=== PATIENT | female | born 1935 | race Caucasian/White ===

== ENCOUNTER 2017-09-29 05:38 | Inpatient (IN) | payer MEDICARE, BC ==
[2017-09-29] MEDS ORDERED: Sodium Chloride 0.9% 10 ML Syringe FLUSH PRN (06:10)
[2017-09-29] MEDS ORDERED: Sodium Chloride 0.9% 500 ML IV ONE (06:12)
[2017-09-29] MEDS ORDERED: Sodium Chloride 0.9% 1,000 ML IV SCH (07:15)
[2017-09-29] MEDS ORDERED: Labetalol 20 MG/4 ML Syringe IVPUSH STA (07:30)
[2017-09-29] MEDS ORDERED: Levofloxacin/Dextrose 5%-Water 750 MG in Premix Bag 1 BAG IV ONE (07:30)
[2017-09-29] MEDS ORDERED: Levofloxacin/Dextrose 5%-Water 150 ML IV ONE (07:36)
[2017-09-29] MEDS ORDERED: Docusate Sodium 100 MG Cap PO PRN (09:50)
[2017-09-29] MEDS ORDERED: Ondansetron 4 MG/2 ML SDV IV PRN (09:50)
[2017-09-29] MEDS ORDERED: oxyCODONE 5 MG Tab PO PRN (09:50)
--- NOTE | 2017-09-29 10:02 | EDM.PDOC ---
ED HPI GENERAL MEDICAL PROBLEM - General Chief Complaint: General Stated Complaint: FELL RT HIP PAIN Time Seen by Provider: 09/29/17 05:40 Source of Information: Reports: Patient, EMS History Limitations: Reports: Altered Mental Status, Physical Impairment - History of Present Illness INITIAL COMMENTS - FREE TEXT/NARRATIVE: 82 y.o.w.f with a dementia came by ems to the ed after she was found on the floor next to her bed. As per nurse, the pt is trying to get up without help in the past. Pt is not able to give a HPT due to her underlying medical issues. BP 190/125 pulse 84 temp 36.6 Onset: Today Onset Date: 09/29/17 Onset Time: 04:00 Duration: Hour(s):, Constant Location: Reports: Generalized Quality: Reports: Other (was found next to her bed) Severity: Moderate Improves with: Reports: Rest Worsens with: Reports: Movement - Related Data Allergies Allergy/AdvReac Type Severity Reaction Status Date / Time No Known Allergies Allergy Verified 09/29/17 06:40 Home Meds: Home Meds Acetaminophen [Tylenol] 650 mg PO BID@,16 09/29/17 [History] Amoxicillin 2,000 mg PO ONETIME PRN 09/29/17 [History] Bisacodyl 10 mg RECTAL DAILY PRN 09/29/17 [History] Carboxymethylcellulose Sodium [Refresh Tears 0.5% Ophth Soln] 1 drop EYEBOTH BID 09/29/17 [History] Donepezil HCl 5 mg PO BEDTIME 09/29/17 [History] Escitalopram Oxalate 20 mg PO DAILY 09/29/17 [History] Furosemide [Lasix] 20 mg PO SUTUTHSA 09/29/17 [History] Furosemide [Lasix] 40 mg PO MOWEFR 09/29/17 [History] Gabapentin [Neurontin] 100 mg PO BID@08,12 09/29/17 [History] Gabapentin [Neurontin] 300 mg PO BEDTIME 09/29/17 [History] Insulin Detemir [Levemir] 4 unit SUBCUT BEDTIME 09/29/17 [History] LORazepam [Ativan] 0.5 mg PO TID PRN 09/29/17 [History] Mirtazapine 45 mg PO BEDTIME 09/29/17 [History] Nitroglycerin 0.4 mg SL ASDIRECTED PRN 09/29/17 [History] Triamcinolone Acetonide [Triamcinolone Acetonide 0.1% Crm] 1 applic TOP BID [History] amLODIPine [Norvasc] 5 mg PO DAILY 09/29/17 [History] busPIRone [Buspar] 5 mg PO BID 09/29/17 [History] Past Medical History - Past Health History Medical/Surgical History: Denies Medical/Surgical History HEENT History: Reports: Other (See Below) Other HEENT History: Retinopathy. Dry eye syndrome. Cardiovascular History: Reports: CAD, Hypertension Genitourinary History: Reports: UTI, Recurrent, Other (See Below) Other Genitourinary History: Chronic Kidney Disease, Stage 3. Neurological History: Reports: Alzheimers Disease, Other (See Below) Other Neuro History: Disorientation. Mild cognitive impairment. Psychiatric History: Reports: Anxiety Endocrine/Metabolic History: Reports: Diabetes, Type II Social & Family History - Tobacco Use Smoking Status *Q: Unknown Ever Smoked - Caffeine Use Caffeine Use: Reports: None ED ROS GENERAL - Review of Systems Review Of Systems: Unable To Obtain ED EXAM, GENERAL - Physical Exam Exam: See Below Exam Limited By: Altered Mental Status General Appearance: Alert, Mild Distress, Obese Eye Exam: Bilateral Eye: Normal Inspection Ears: Normal External Exam Ear Exam: Bilateral Ear: Auricle Normal Nose: Normal Inspection Throat/Mouth: No Airway Compromise, Other (dry mucosal membrane, poor dentition) Head: Atraumatic, Normocephalic Neck: Normal Inspection Respiratory/Chest: No Respiratory Distress, Other (poor insp effort) Cardiovascular: Normal Peripheral Pulses, Regular Rate, Rhythm Peripheral Pulses: 1+: Radial (L), Radial (R) GI/Abdominal: Normal Bowel Sounds, Distended (no new as per NH and daughter) (Female) Exam: Deferred Rectal (Female) Exam: Deferred Back Exam: Other (decubiti ulcers) Extremities: Normal Inspection, Leg Pain (left leg pain), Redness (tinea inguinalis bilat.) Neurological: Alert Psychiatric: Depressed Mood, Other (dementia) Skin Exam: Warm, Dry, Rash (decubiti ulcers, tinea inguinalis) Lymphatic: No Adenopathy EKG INTERPRETATION EKG Date: 09/29/17 Time: 10:50 Rhythm: NSR Rate (Beats/Min): 47 [place]: Normal P-Wave: Present QRS: Normal ST-T: Normal QT: Prolonged Comparison: NA - No Prior EKG Course - Vital Signs Text/Narrative:: 82 y.o.w.f with a dementia came by ems to the ed after she was found on the floor next to her bed. As per nurse, the pt is trying to get up without help in the past. Pt is not able to give a HPT due to her underlying medical issues. BP 190/125 pulse 84 temp 36.6 PE: Obese w f, with dementia, unable to give a HPI, no family is present. Tenderness left upper leg, abd. pelvic neck and head Imaging: CT head, neck, chest abd and pelice NAD Left femur neg for Fx Labs: WBC 6.7 HGB 10.5 HCT 31.4 Na 134 K 3.8 Cr 2.8 BUN 51 BNP 6595 CK is pending GFR 16 Impression: Fall, dehydration, lung infiltratem UTI, Dementia, Tinea inguinalis , decubiti ulcer, HTN Tx: NS, Lotrimin cream. .[address] Joe, Hospitalist: accepted admission Reexam: Improved, Daughter arrived Plan: Admid to M/S Last Recorded V/S: Last Vital Signs Temp 36.4 C 09/30/17 07:50 Pulse 61 09/30/17 07:50 Resp 18 09/30/17 07:50 BP 193/68 H 09/30/17 07:50 Pulse Ox 90 L 09/30/17 07:50 - Orders/Labs/Meds Orders: Active Orders 24 hr Category Date Time Status Accu Check [Blood Glucose Check, Bedside] [] , Care 09/29/17 14:59 Active 1730 Blood Glucose Check, Bedside [RC] ,0,1730 Care 09/29/17 17:30 Inactive Oxygen Therapy [RC] PRN Care 09/29/17 09:50 Active Up With Assistance [RC] ASDIRECTED Care 09/29/17 09:50 Active Vital Signs [RC] QSHIFT Care 09/29/17 09:50 Active Consistent Carbohydrate Diet [DIET] Diet 09/29/17 Dinner Active CULTURE BLOOD [BC] Urgent Lab 09/29/17 09:00 Results CULTURE BLOOD [BC] Urgent Lab 09/29/17 09:05 Results Acetaminophen [Tylenol] Med 09/29/17 14:00 Active 650 mg PO BID@1200,1600 Bisacodyl [Dulcolax] Med 09/29/17 16:06 Active 10 mg RECTAL DAILY PRN Carboxymethylcellulose Sodium [Refresh Tears 0.5%] Med 09/29/17 21:00 Active 0 ml EYEBOTH BID Clotrimazole [Lotrimin AF 1% Crm] Med 09/29/17 21:00 Active 0 gm TOP BID Docusate Sodium [Colace] Med 09/29/17 09:50 Active 100 mg PO BID PRN Donepezil [Aricept] Med 09/29/17 21:00 Hold 5 mg PO BEDTIME Escitalopram [Lexapro] Med 09/30/17 09:00 Active 20 mg PO DAILY Gabapentin [Neurontin] Med 09/29/17 14:00 Active 100 mg PO BID@0800,1200 Gabapentin [Neurontin] Med 09/29/17 21:00 Active 300 mg PO BEDTIME Insulin Detemir [Levemir] Med 09/29/17 21:00 Active 4 unit SUBCUT BEDTIME LORazepam [Ativan] Med 09/29/17 16:06 Active 0.5 mg PO TID PRN Levofloxacin/Dextrose 5%-Water [Levaquin in D5W 500 MG/ Med 10/01/17 10:00 Active 100 ML] 500 mg Premix Bag 1 bag IV Q48H Nitroglycerin [Nitrostat] Med 09/29/17 16:06 Active 0.4 mg SL ASDIRECTED PRN Triamcinolone Acetonide [Triamcinolone Acetonide 0.1% Med 09/29/17 21:00 Active Crm] 0 gm TOP BID amLODIPine [Norvasc] Med 09/30/17 09:00 Active 5 mg PO DAILY oxyCODONE Med 09/29/17 09:50 Active 5 mg PO Q4H PRN Blood Culture x2 Reflex Set [OM.PC] Urgent Oth 09/29/17 08:48 Ordered Resuscitation Status Routine Resus Stat 09/29/17 09:50 Ordered EKG 12 Lead [EK] Routine Ther 09/29/17 10:22 Ordered Medication Orders Acetaminophen (Tylenol) 650 mg PO BID@1200,1600 [facility] Last Admin: 09/29/17 17:43 Dose: 650 mg Admin: 09/29/17 14:21 Dose: 650 mg Amlodipine Besylate (Norvasc) 5 mg PO DAILY [facility] Artificial Tears (Refresh Tears 0.5%) 0 ml EYEBOTH BID [facility] Last Admin: 09/29/17 20:21 Dose: 1 drop Bisacodyl (Dulcolax) 10 mg RECTAL DAILY PRN PRN Reason: Constipation Buspirone HCl (Buspar) 5 mg PO BID [facility] Clotrimazole (Lotrimin Af 1% Crm) 0 gm TOP BID [facility] Last Admin: 09/29/17 20:08 Dose: 1 applic Docusate Sodium (Colace) 100 mg PO BID PRN PRN Reason: Constipation Donepezil HCl (Aricept) 5 mg PO BEDTIME [facility] Enoxaparin Sodium (Lovenox) 30 mg SUBCUT Q24H [facility] Last Admin: 09/29/17 18:44 Dose: 30 mg Escitalopram Oxalate (Lexapro) 20 mg PO DAILY [facility] Gabapentin (Neurontin) 100 mg PO BID@0800,1200 [facility] Last Admin: 09/30/17 08:07 Dose: 100 mg Admin: 09/29/17 14:28 Dose: 100 mg Gabapentin (Neurontin) 300 mg PO BEDTIME [facility] Last Admin: 09/29/17 20:07 Dose: 300 mg Levofloxacin/Dextrose 500 mg/ (Premix) 100 mls @ 100 mls/hr IV Q48H [facility] Insulin Detemir (Levemir) 4 unit SUBCUT BEDTIME [facility] Last Admin: 09/29/17 20:28 Dose: 4 units Lorazepam (Ativan) 0.5 mg PO TID PRN PRN Reason: Anxiety Mirtazapine (Remeron) 45 mg PO BEDTIME [facility] Nitroglycerin (Nitrostat) 0.4 mg SL ASDIRECTED PRN PRN Reason: Chest Pain Oxycodone HCl (Oxycodone) 5 mg PO Q4H PRN PRN Reason: Pain (moderate 4-6) Last Admin: 09/29/17 11:47 Dose: 5 mg Sodium Chloride (Saline Flush) 10 ml FLUSH ASDIRECTED PRN PRN Reason: Keep Vein Open Triamcinolone Acetonide (Triamcinolone Acetonide 0.1% Crm) 0 gm TOP BID [facility] Last Admin: 09/29/17 20:24 Dose: 1 applic Labs: Laboratory Tests 09/29/17 09/29/17 09/29/17 Range/Units 06:25 06:25 06:25 WBC 6.7 (4.5-12.0) X10-3/uL RBC 3.46 (3.23-5.20) x10(6)uL Hgb 10.5 L (11.5-15.5) g/dL Hct 31.6 (30.0-51.3) % MCV 91.4 (80-96) fL MCH 30.3 (27.7-33.6) pg MCHC 33.2 (32.2-35.4) g/dL RDW 14.2 (11.5-15.5) % Plt Count 209 (125-369) X10(3)uL MPV 7.2 L (7.4-10.4) fL Neut % (Auto) 78.8 (46-82) % Lymph % (Auto) 13.8 (13-37) % [place] % (Auto) 3.9 L (4-12) % Eos % (Auto) 1 (1.0-5.0) % Baso % (Auto) 2 (0-2) % Neut # (Auto) 5.2 (1.6-8.3) # Lymph # (Auto) 0.9 (0.6-5.0) # [place] # (Auto) 0.3 (0.0-1.3) # Eos # (Auto) 0.1 (0.0-0.8) # Baso # (Auto) 0.2 (0.0-0.2) # PT 9.8 (8.7-11.1) INR 0.97 (0.89-1.13) Sodium 143 (135-145) mmol/L Potassium 4.4 (3.5-5.3) mmol/L Chloride 114 H D (100-110) mmol/L Carbon Dioxide 22 L (23-29) mmol/L BUN 51 H (8-23) mg/dL Creatinine 2.8 H* (0.6-1.3) mg/dL Est Cr Clr Drug Dosing TNP Estimated GFR (MDRD) 16 L (>60) BUN/Creatinine Ratio 18.2 (9-20) Glucose 171 H (80-116) mg/dL Calcium 8.4 L (8.6-10.2) mg/dL Total Bilirubin (0.1-1.3) mg/dL Direct Bilirubin (0.10-0.20) mg/dL AST (5-25) IU/L ALT (12-36) U/L Alkaline Phosphatase (56-112) IU/L Creatine Kinase (60-160) IU/L NT-Pro-B Natriuret Pep 6595 H (5-450) pg/mL Total Protein (6.0-8.0) g/dL Albumin (3.2-4.6) g/dL Urine Color (YELLOW) Urine Appearance (CLEAR) Urine pH (5.0-6.5) Ur Specific [place] (1.010-1.025) Urine Protein (NEGATIVE) mg/dL Urine Glucose (UA) (NEGATIVE) mg/dL Urine Ketones (NEGATIVE) mg/dL Urine Occult Blood (NEGATIVE) Urine Nitrite (NEGATIVE) Urine Bilirubin (NEGATIVE) Urine Urobilinogen (NEGATIVE) mg/dL Ur Leukocyte Esterase (NEGATIVE) Urine RBC (0) Urine WBC (0) Ur Squamous Epith Cells (NS,R,O) Urine Bacteria (NS) Urine Yeast (NS) 09/29/17 09/29/17 09/29/17 Range/Units 06:28 07:00 07:15 WBC (4.5-12.0) X10-3/uL RBC (3.23-5.20) x10(6)uL Hgb (11.5-15.5) g/dL Hct (30.0-51.3) % MCV (80-96) fL MCH (27.7-33.6) pg MCHC (32.2-35.4) g/dL RDW (11.5-15.5) % Plt Count (125-369) X10(3)uL MPV (7.4-10.4) fL Neut % (Auto) (46-82) % Lymph % (Auto) (13-37) % [place] % (Auto) (4-12) % Eos % (Auto) (1.0-5.0) % Baso % (Auto) (0-2) % Neut # (Auto) (1.6-8.3) # Lymph # (Auto) (0.6-5.0) # [place] # (Auto) (0.0-1.3) # Eos # (Auto) (0.0-0.8) # Baso # (Auto) (0.0-0.2) # PT (8.7-11.1) INR (0.89-1.13) Sodium (135-145) mmol/L Potassium (3.5-5.3) mmol/L Chloride (100-110) mmol/L Carbon Dioxide (23-29) mmol/L BUN (8-23) mg/dL Creatinine (0.6-1.3) mg/dL Est Cr Clr Drug Dosing Estimated GFR (MDRD) (>60) BUN/Creatinine Ratio (9-20) Glucose (80-116) mg/dL Calcium (8.6-10.2) mg/dL Total Bilirubin 0.3 (0.1-1.3) mg/dL Direct Bilirubin 0.05 L (0.10-0.20) mg/dL AST 35 H (5-25) IU/L ALT 28 (12-36) U/L Alkaline Phosphatase 156 H (56-112) IU/L Creatine Kinase 276 H* (60-160) IU/L NT-Pro-B Natriuret Pep (5-450) pg/mL Total Protein 6.3 (6.0-8.0) g/dL Albumin 2.6 L (3.2-4.6) g/dL Urine Color Yellow (YELLOW) Urine Appearance Cloudy (CLEAR) Urine pH 6.0 (5.0-6.5) Ur Specific [place] 1.015 (1.010-1.025) Urine Protein 500 H (NEGATIVE) mg/dL Urine Glucose (UA) 250 H (NEGATIVE) mg/dL Urine Ketones Negative (NEGATIVE) mg/dL Urine Occult Blood Moderate H (NEGATIVE) Urine Nitrite Positive H (NEGATIVE) Urine Bilirubin Negative (NEGATIVE) Urine Urobilinogen Normal (NEGATIVE) mg/dL Ur Leukocyte Esterase Moderate H (NEGATIVE) Urine RBC 5-10 (0) Urine WBC 20-30 H (0) Ur Squamous Epith Cells Few H (NS,R,O) Urine Bacteria Many H (NS) Urine Yeast Few H (NS) Meds: Medications Generic Name Dose Route Start Last Admin Trade Name Freq PRN Reason Stop Dose Admin Acetaminophen 650 mg 09/29/17 14:00 09/29/17 17:43 Tylenol PO 650 mg BID@1200,1600 [facility] Administration Amlodipine Besylate 5 mg 09/30/17 09:00 Norvasc PO DAILY [facility] Artificial Tears 0 ml 09/29/17 21:00 09/29/17 20:21 Refresh Tears 0.5% EYEBOTH 1 drop BID [facility] Administration Bisacodyl 10 mg 09/29/17 16:06 Dulcolax RECTAL DAILY PRN Constipation Buspirone HCl 5 mg 09/30/17 09:00 Buspar PO BID [facility] Clotrimazole 0 gm 09/29/17 21:00 09/29/17 20:08 Lotrimin Af 1% Crm TOP 1 applic BID [facility] Administration Docusate Sodium 100 mg 09/29/17 09:50 Colace PO BID PRN Constipation Donepezil HCl 5 mg 09/29/17 21:00 Aricept PO BEDTIME [facility] Enoxaparin Sodium 30 mg 09/29/17 17:45 09/29/17 18:44 Lovenox SUBCUT 30 mg Q24H [facility] Administration Escitalopram Oxalate 20 mg 09/30/17 09:00 Lexapro PO DAILY [facility] Gabapentin 100 mg 09/29/17 14:00 09/30/17 08:07 Neurontin PO 100 mg BID@0800,1200 [facility] Administration Gabapentin 300 mg 09/29/17 21:00 09/29/17 20:07 Neurontin PO 300 mg BEDTIME [facility] Administration Levofloxacin/Dextrose 500 mg/ 100 mls @ 100 mls/hr 10/01/17 10:00 Premix IV Q48H [facility] Insulin Detemir 4 unit 09/29/17 21:00 09/29/17 20:28 Levemir SUBCUT 4 units BEDTIME [facility] Administration Lorazepam 0.5 mg 09/29/17 16:06 Ativan PO TID PRN Anxiety Mirtazapine 45 mg 09/30/17 21:00 Remeron PO BEDTIME [facility] Nitroglycerin 0.4 mg 09/29/17 16:06 Nitrostat SL ASDIRECTED PRN Chest Pain Oxycodone HCl 5 mg 09/29/17 09:50 09/29/17 11:47 Oxycodone PO 5 mg Q4H PRN Administration Pain (moderate 4-6) Sodium Chloride 10 ml 09/29/17 06:10 Saline Flush FLUSH ASDIRECTED PRN Keep Vein Open Triamcinolone Acetonide 0 gm 09/29/17 21:00 09/29/17 20:24 Triamcinolone Acetonide 0.1% Crm TOP 1 applic BID [facility] Administration Discontinued Medications Generic Name Dose Route Start Last Admin Trade Name Cinthya PRN Reason Stop Dose Admin Buspirone HCl 5 mg 09/29/17 21:00 09/29/17 20:21 Buspar PO 5 mg BID [facility] Administration Sodium Chloride 500 mls @ 999 mls/hr 09/29/17 06:12 Normal Saline IV 09/29/17 06:42 .BOLUS ONE Sodium Chloride 1,000 mls @ 500 mls/hr 09/29/17 07:15 09/29/17 07:15 Normal Saline IV 500 mls/hr ASDIRECTED [facility] Administration Levofloxacin/Dextrose 750 mg/ 150 mls @ 100 mls/hr 09/29/17 07:30 09/29/17 07 :43 Premix IV 09/29/17 08:59 100 mls/hr ONETIME ONE Administration Levofloxacin/Dextrose Confirm 09/29/17 07:36 09/29/17 07:43 Levaquin In D5w 750 Mg/150 Ml Administered 09/29/17 07:37 Not Given Dose 150 mls @ as directed IV .STK-MED ONE Lactated Ringer's 1,000 mls @ 125 mls/hr 09/29/17 10:00 09/30/17 05:41 Ringers, Lactated IV 125 mls/hr ASDIRECTED [facility] Administration Labetalol HCl 10 mg 09/29/17 07:30 09/29/17 07:44 Normodyne IVPUSH 09/29/17 07:31 10 mg ONETIME STA Administration Protocol Mirtazapine 45 mg 09/29/17 21:00 09/29/17 20:23 Remeron PO 45 mg BEDTIME [facility] Administration Ondansetron HCl 4 mg 09/29/17 09:50 Zofran IV Q4H PRN Nausea/Vomiting Departure - Departure Time of Disposition: 10:00 Disposition: Refer to Observation Condition: Fair Clinical Impression: Fall (on)(from) incline, initial encounter - Discharge Information - My Orders Last 24 Hours: My Active Orders 09/29/17 08:48 Blood Culture x2 Reflex Set [OM.PC] Urgent 09/29/17 09:00 CULTURE BLOOD [BC] Urgent 09/29/17 09:05 CULTURE BLOOD [BC] Urgent 09/29/17 09:50 Oxygen Therapy [RC] PRN Up With Assistance [RC] ASDIRECTED Vital Signs [RC] QSHIFT Docusate Sodium [Colace] 100 mg PO BID PRN oxyCODONE 5 mg PO Q4H PRN Resuscitation Status Routine 09/29/17 10:22 EKG 12 Lead [EK] Routine 09/29/17 21:00 Clotrimazole [Lotrimin AF 1% Crm] 0 gm TOP BID 10/01/17 10:00 Levofloxacin/Dextrose 5%-Water [Levaquin in D5W 500 MG/100 ML] 500 mg Premix Bag 1 bag IV Q48H - Assessment/Plan Last 24 Hours: My Active Orders 09/29/17 08:48 Blood Culture x2 Reflex Set [OM.PC] Urgent 09/29/17 09:00 CULTURE BLOOD [BC] Urgent 09/29/17 09:05 CULTURE BLOOD [BC] Urgent 09/29/17 09:50 Oxygen Therapy [RC] PRN Up With Assistance [RC] ASDIRECTED Vital Signs [RC] QSHIFT Docusate Sodium [Colace] 100 mg PO BID PRN oxyCODONE 5 mg PO Q4H PRN Resuscitation Status Routine 09/29/17 10:22 EKG 12 Lead [EK] Routine 09/29/17 21:00 Clotrimazole [Lotrimin AF 1% Crm] 0 gm TOP BID 10/01/17 10:00 Levofloxacin/Dextrose 5%-Water [Levaquin in D5W 500 MG/100 ML] 500 mg Premix Bag 1 bag IV Q48H
[2017-09-29] MEDS: Lactated Ringers 1,000 ML IV SCH ×2 (12:26→21:35)
--- NOTE | 2017-09-29 13:36 | CR ---
INDICATION: Trauma. LEFT FEMUR, 2 VIEWS (4 IMAGES): Extensive vascular calcification. 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 I do not see any bony abnormalities identified at this time. KEN
[2017-09-29] MEDS: Acetaminophen 325 MG Tab PO SCH ×2 (14:21→17:43)
[2017-09-29] MEDS: Gabapentin 100 MG Cap PO SCH (14:28)
--- NOTE | 2017-09-29 16:04 | PCM.HP ---
H&P History of Present Illness - General Date of Service: 09/29/17 Source of Information: Patient, EMS Notes Reviewed, Family History Limitations: Reports: Altered Mental Status - History of Present Illness Initial Comments - Free Text/Narative: This is an 82-year-old female patient that lives at the memory care at [facility]. She was found on the floor today. Normally she walks with a walker. The staff asked her to get up she stated she hurt too much to get up. They called EMS brought her in. She had x-rays was found to have a left lower lobe pneumonia and a UTI. No hip fracture seen. Patient has no concerns. She has dementia and appears she states she now she is in the hospital but does not know the date or the day today. Her daughter states she's been feeling okay as far she knows. Her daughters from [place]. Not able to get a good history from the patient. - Related Data Allergies/Adverse Reactions: Allergies Allergy/AdvReac Type Severity Reaction Status Date / Time No Known Allergies Allergy Verified 09/29/17 06:40 Home Medications: Home Meds Acetaminophen [Tylenol] 650 mg PO BID@12,16 09/29/17 [History] Amoxicillin 2,000 mg PO ONETIME PRN 09/29/17 [History] Bisacodyl 10 mg RECTAL DAILY PRN 09/29/17 [History] Carboxymethylcellulose Sodium [Refresh Tears 0.5% Ophth Soln] 1 drop EYEBOTH BID 09/29/17 [History] Donepezil HCl 5 mg PO BEDTIME 09/29/17 [History] Escitalopram Oxalate 20 mg PO DAILY 09/29/17 [History] Furosemide [Lasix] 20 mg PO SUTUTHSA 09/29/17 [History] Furosemide [Lasix] 40 mg PO MOWEFR 09/29/17 [History] Gabapentin [Neurontin] 100 mg PO BID@08,12 09/29/17 [History] Gabapentin [Neurontin] 300 mg PO BEDTIME 09/29/17 [History] Insulin Detemir [Levemir] 4 unit SUBCUT BEDTIME 09/29/17 [History] LORazepam [Ativan] 0.5 mg PO TID PRN 09/29/17 [History] Mirtazapine 45 mg PO DAILY 09/29/17 [History] Nitroglycerin 0.4 mg SL ASDIRECTED PRN 09/29/17 [History] Triamcinolone Acetonide [Triamcinolone Acetonide 0.1% Crm] 1 applic TOP BID [History] amLODIPine [Norvasc] 5 mg PO DAILY 09/29/17 [History] busPIRone [Buspar] 5 mg PO BID 09/29/17 [History] Past Medical History - Past Health History Medical/Surgical History: Denies Medical/Surgical History HEENT History: Reports: Other (See Below) Other HEENT History: Retinopathy. Dry eye syndrome. Cardiovascular History: Reports: CAD, Hypertension Respiratory History: Reports: SOB Genitourinary History: Reports: UTI, Recurrent, Other (See Below) Other Genitourinary History: Chronic Kidney Disease, Stage 3. [employer] History: Reports: Musculoskeletal History: Reports: Arthritis Neurological History: Reports: Alzheimers Disease, Other (See Below) Other Neuro History: Disorientation. Mild cognitive impairment. Psychiatric History: Reports: Anxiety Endocrine/Metabolic History: Reports: Diabetes, Type II Dermatologic History: Reports: Other (See Below) Other Dermatologic History: RASH TO BELLY FOLDS\GROINS - Infectious Disease History Infectious Disease History: Reports: Chicken Pox, Measles - Past Surgical History Cardiovascular Surgical History: Reports: None Respiratory Surgical History: Reports: None Dermatological Surgical History: Reports: None Social & Family History - Family History Family Medical History: Noncontributory - Tobacco Use Smoking Status *Q: Unknown Ever Smoked Second Hand Smoke Exposure: No - Caffeine Use Caffeine Use: Reports: None - Recreational Drug Use Recreational Drug Use: No H&P Review of Systems - Review of Systems: Review Of Systems: Unable To Obtain Exam - Exam Exam: See Below - Vital Signs Vital Signs: Last Vital Signs Temp 97.8 F 09/29/17 15:05 Pulse 45 L 09/29/17 15:05 Resp 18 09/29/17 15:05 BP 143/58 H 09/29/17 15:05 Pulse Ox 91 L 09/29/17 15:05 Weight: 191 lb 2 oz - Exam General: Alert, Cooperative. No: Oriented, Mild Distress HEENT: Hearing Intact, Posterior Pharynx Clear, TMs Clear Neck: Supple, Trachea Midline Lungs: Clear to Auscultation, Normal Respiratory Effort. No: Crackles, Rales, Rhonchi Cardiovascular: Regular Rate, Regular Rhythm. No: Systolic Murmur GI/Abdominal Exam: Normal Bowel Sounds, No Organomegaly, No Distention, No Mass , Pelvis Stable Back Exam: Normal Inspection Extremities: Non-Tender, No Pedal Edema Skin: Rash (Left inguinal region) Neurological: Normal Speech, Normal Tone Neuro Extensive - Mental Status: Alert, Normal Mood/Affect. No: Oriented x3, Normal Cognition, Memory Intact Psychiatric: Alert, Normal Affect - Patient Data Result Diagrams: 09/29/17 06:25 09/29/17 06:25 *Q Meaningful Use (ADM) - VTE *Q VTE Criteria *Q: - Stroke *Q Stroke Criteria *Q: - AMI *Q AMI Criteria *Q: - Problem List (1) Pneumonia SNOMED Code(s): 300379200 ICD Code: J18.9 - PNEUMONIA, UNSPECIFIED ORGANISM Status: Acute Current Visit: Yes Qualifiers: Laterality: left Lung location: lower lobe of lung (2) UTI (urinary tract infection) SNOMED Code(s): 09515022 ICD Code: N39.0 - URINARY TRACT INFECTION, SITE NOT SPECIFIED Status: Acute Current Visit: Yes (3) Rash SNOMED Code(s): 244226299 ICD Code: R21 - RASH AND OTHER NONSPECIFIC SKIN ERUPTION Status: Acute Current Visit: Yes (4) Dementia SNOMED Code(s): 59478258 ICD Code: F03.90 - UNSPECIFIED DEMENTIA WITHOUT BEHAVIORAL DISTURBANCE Status: Acute Current Visit: Yes (5) Palliative care status SNOMED Code(s): 910817286 ICD Code: Z51.5 - ENCOUNTER FOR PALLIATIVE CARE Status: Acute Current Visit: Yes Problem List Initiated/Reviewed/Updated: Yes Orders Last 24hrs: Active Orders 24 hr Category Date Time Status Accu Check [Blood Glucose Check, Bedside] [] 07,1130, Care 09/29/17 14:59 Active 1730 Blood Glucose Check, Bedside [] 07,1130,1730 Care 09/29/17 17:30 Inactive Wound Care [RC] 08,16,00 Care 09/29/17 11:12 Active Consistent Carbohydrate Diet [DIET] Diet 09/29/17 Dinner Active Acetaminophen [Tylenol] Med 09/29/17 14:00 Active 650 mg PO BID@1200,1600 Clotrimazole [Lotrimin AF 1% Crm] Med 09/29/17 21:00 Active 0 gm TOP BID Gabapentin [Neurontin] Med 09/29/17 14:00 Active 100 mg PO BID@0800,1200 Gabapentin [Neurontin] Med 09/29/17 21:00 Active 300 mg PO BEDTIME Levofloxacin/Dextrose 5%-Water [Levaquin in D5W 500 MG/ Med 10/01/17 10:00 Active 100 ML] 500 mg Premix Bag 1 bag IV Q48H EKG 12 Lead [EK] Routine Ther 09/29/17 10:22 Ordered Medication Orders Acetaminophen (Tylenol) 650 mg PO BID@1200,1600 [facility] Last Admin: 09/29/17 14:21 Dose: 650 mg Clotrimazole (Lotrimin Af 1% Crm) 0 gm TOP BID [facility] Docusate Sodium (Colace) 100 mg PO BID PRN PRN Reason: Constipation Gabapentin (Neurontin) 100 mg PO BID@0800,1200 [facility] Last Admin: 09/29/17 14:28 Dose: 100 mg Gabapentin (Neurontin) 300 mg PO BEDTIME [facility] Lactated Ringer's (Ringers, Lactated) 1,000 mls @ 125 mls/hr IV ASDIRECTED [facility] Last Admin: 09/29/17 12:26 Dose: 125 mls/hr Levofloxacin/Dextrose 500 mg/ (Premix) 100 mls @ 100 mls/hr IV Q48H [facility] Oxycodone HCl (Oxycodone) 5 mg PO Q4H PRN PRN Reason: Pain (moderate 4-6) Last Admin: 09/29/17 11:47 Dose: 5 mg Sodium Chloride (Saline Flush) 10 ml FLUSH ASDIRECTED PRN PRN Reason: Keep Vein Open Assessment/Plan Comment:: 1. Admit inpatient. 2. Discussed with her daughter and she is a DNR. 3. IV antibiotics and fluids. 4. VTE prophylaxis. 5. Continue home medications. 6. By mouth diet. 7. Recheck labs in a.m.
[2017-09-29] MEDS ORDERED: Nitroglycerin 0.4 MG Tab.SL SL PRN (16:06)
[2017-09-29] MEDS ORDERED: Bisacodyl 10 MG Supp RECTAL PRN (16:06)
[2017-09-29] MEDS ORDERED: LORazepam 0.5 MG Tab PO PRN (16:06)
[2017-09-29] MEDS: Enoxaparin 30 MG/0.3 ML Syringe SUBCUT SCH (18:44)
[2017-09-29] MEDS: Gabapentin 300 MG Cap PO SCH (20:07)
[2017-09-29] MEDS: Clotrimazole 1% Crm 30 GM Tube TOP SCH (20:08)
[2017-09-29] MEDS: Carboxymethylcellulose Sodium 0.5% Ophth Soln 15 ML Bottle EYEBOTH SCH (20:21)
[2017-09-29] MEDS: Triamcinolone Acetonide 0.1% Crm 15 GM Tube TOP SCH (20:24)
[2017-09-29] MEDS: Insulin Detemir 100 Units/ML 3 ML Pen SUBCUT SCH (20:28)
[2017-09-29] MEDS ORDERED: Gabapentin 300 MG Cap PO SCH (21:00)
[2017-09-29] MEDS ORDERED: Mirtazapine 30 MG Tab *PTOM PO SCH (21:00)
[2017-09-29] MEDS ORDERED: BUSPIRONE 10 MG PO SCH (21:00)
[2017-09-29] MEDS ORDERED: Donepezil 10 MG Tab PO SCH (21:00)
[2017-09-30] MEDS: Lactated Ringers 1,000 ML IV SCH (05:41)
[2017-09-30] MEDS ORDERED: Gabapentin 100 MG Cap PO SCH (08:00)
[2017-09-30] MEDS: Gabapentin 100 MG Cap PO SCH ×2 (08:07→12:34)
--- NOTE | 2017-09-30 08:37 | PCM.PN ---
- General Info Date of Service: 09/30/17 Admission Dx/Problem (Free Text): Patient has dimensions a poor historian. She has no concerns today. Nurses report that she is eating well and is having no coughing. She has a Muñiz catheter placed at this time. - Patient Data Vitals - Most Recent: Last Vital Signs Temp 97.6 F 09/30/17 07:50 Pulse 61 09/30/17 07:50 Resp 18 09/30/17 07:50 BP 193/68 H 09/30/17 07:50 Pulse Ox 90 L 09/30/17 07:50 Weight - Most Recent: 191 lb 2 oz I&O - Last 24 Hours: Intake & Output 09/29/17 09/30/17 09/30/17 22:59 06:59 14:59 Intake Total 930 1050 Output Total 200 400 Balance 730 650 Lab Results Last 24 Hours: Laboratory Results - last 24 hr 09/29/17 09/30/17 09/30/17 Range/Units 17:41 06:59 07:07 WBC 4.3 L (4.5-12.0) X10-3/uL RBC 3.08 L (3.23-5.20) x10(6)uL Hgb 9.4 L (11.5-15.5) g/dL Hct 28.2 L (30.0-51.3) % MCV 91.5 (80-96) fL MCH 30.6 (27.7-33.6) pg MCHC 33.4 (32.2-35.4) g/dL RDW 14.4 (11.5-15.5) % Plt Count 179 (125-369) X10(3)uL MPV 7.3 L (7.4-10.4) fL Neut % (Auto) 66.4 (46-82) % Lymph % (Auto) 23.7 (13-37) % Barren % (Auto) 5.6 (4-12) % Eos % (Auto) 4 (1.0-5.0) % Baso % (Auto) 0 (0-2) % Neut # (Auto) 2.9 (1.6-8.3) # Lymph # (Auto) 1.0 (0.6-5.0) # Barren # (Auto) 0.2 (0.0-1.3) # Eos # (Auto) 0.2 (0.0-0.8) # Baso # (Auto) 0.0 (0.0-0.2) # Sodium (135-145) mmol/L Potassium (3.5-5.3) mmol/L Chloride (100-110) mmol/L Carbon Dioxide (21-32) mmol/L BUN (7-18) mg/dL Creatinine (0.55-1.02) mg/dL Est Cr Clr Drug Dosing mL/min Estimated GFR (MDRD) (>60) BUN/Creatinine Ratio (9-20) Glucose (80-116) mg/dL POC Glucose 164 H 125 H (80-116) mg/dL Calcium (8.6-10.2) mg/dL Total Bilirubin (0.1-1.3) mg/dL AST (5-25) IU/L ALT (12-36) U/L Alkaline Phosphatase (56-112) IU/L Total Protein (6.0-8.0) g/dL Albumin (3.2-4.6) g/dL Globulin g/dL Albumin/Globulin Ratio 09/30/ Range/Units 07:07 WBC (4.5-12.0) X10-3/uL RBC (3.23-5.20) x10(6)uL Hgb (11.5-15.5) g/dL Hct (30.0-51.3) % MCV (80-96) fL MCH (27.7-33.6) pg MCHC (32.2-35.4) g/dL RDW (11.5-15.5) % Plt Count (125-369) X10(3)uL MPV (7.4-10.4) fL Neut % (Auto) (46-82) % Lymph % (Auto) (13-37) % Barren % (Auto) (4-12) % Eos % (Auto) (1.0-5.0) % Baso % (Auto) (0-2) % Neut # (Auto) (1.6-8.3) # Lymph # (Auto) (0.6-5.0) # Barren # (Auto) (0.0-1.3) # Eos # (Auto) (0.0-0.8) # Baso # (Auto) (0.0-0.2) # Sodium 145 (135-145) mmol/L Potassium 4.8 (3.5-5.3) mmol/L Chloride 113 H (100-110) mmol/L Carbon Dioxide 24 (21-32) mmol/L BUN 48 H (7-18) mg/dL Creatinine 2.6 H* (0.55-1.02) mg/dL Est Cr Clr Drug Dosing 13.32 mL/min Estimated GFR (MDRD) 18 L (>60) BUN/Creatinine Ratio 18.5 (9-20) Glucose 115 (80-116) mg/dL POC Glucose (80-116) mg/dL Calcium 8.0 L (8.6-10.2) mg/dL Total Bilirubin 0.2 (0.1-1.3) mg/dL AST 29 H D (5-25) IU/L ALT 23 D (12-36) U/L Alkaline Phosphatase 139 H (56-112) IU/L Total Protein 5.4 L (6.0-8.0) g/dL Albumin 2.1 L (3.2-4.6) g/dL Globulin 3.3 g/dL Albumin/Globulin Ratio 0.6 Med Orders - Current: Current Medications Acetaminophen (Tylenol) 650 mg PO BID@1200,1600 [facility] Last Admin: 09/29/17 17:43 Dose: 650 mg Amlodipine Besylate (Norvasc) 5 mg PO DAILY [facility] Artificial Tears (Refresh Tears 0.5%) 0 ml EYEBOTH BID [facility] Last Admin: 09/29/17 20:21 Dose: 1 drop Bisacodyl (Dulcolax) 10 mg RECTAL DAILY PRN PRN Reason: Constipation Buspirone HCl (Buspar) 5 mg PO BID [facility] Clotrimazole (Lotrimin Af 1% Crm) 0 gm TOP BID [facility] Last Admin: 09/29/17 20:08 Dose: 1 applic Docusate Sodium (Colace) 100 mg PO BID PRN PRN Reason: Constipation Donepezil HCl (Aricept) 5 mg PO BEDTIME [facility] Enoxaparin Sodium (Lovenox) 30 mg SUBCUT Q24H [facility] Last Admin: 09/29/17 18:44 Dose: 30 mg Escitalopram Oxalate (Lexapro) 20 mg PO DAILY [facility] Gabapentin (Neurontin) 100 mg PO BID@0800,1200 [facility] Last Admin: 09/30/17 08:07 Dose: 100 mg Gabapentin (Neurontin) 300 mg PO BEDTIME [facility] Last Admin: 09/29/17 20:07 Dose: 300 mg Levofloxacin/Dextrose 500 mg/ (Premix) 100 mls @ 100 mls/hr IV Q48H [facility] Insulin Detemir (Levemir) 4 unit SUBCUT BEDTIME [facility] Last Admin: 09/29/17 20:28 Dose: 4 units Lorazepam (Ativan) 0.5 mg PO TID PRN PRN Reason: Anxiety Mirtazapine (Remeron) 45 mg PO BEDTIME [facility] Nitroglycerin (Nitrostat) 0.4 mg SL ASDIRECTED PRN PRN Reason: Chest Pain Oxycodone HCl (Oxycodone) 5 mg PO Q4H PRN PRN Reason: Pain (moderate 4-6) Last Admin: 09/29/17 11:47 Dose: 5 mg Sodium Chloride (Saline Flush) 10 ml FLUSH ASDIRECTED PRN PRN Reason: Keep Vein Open Triamcinolone Acetonide (Triamcinolone Acetonide 0.1% Crm) 0 gm TOP BID [facility] Last Admin: 09/29/17 20:24 Dose: 1 applic Discontinued Medications Buspirone HCl (Buspar) 5 mg PO BID [facility] Last Admin: 09/29/17 20:21 Dose: 5 mg Sodium Chloride (Normal Saline) 500 mls @ 999 mls/hr IV .BOLUS ONE Stop: 09/29/17 06:42 Sodium Chloride (Normal Saline) 1,000 mls @ 500 mls/hr IV ASDIRECTED [facility] Last Admin: 09/29/17 07:15 Dose: 500 mls/hr Levofloxacin/Dextrose 750 mg/ (Premix) 150 mls @ 100 mls/hr IV ONETIME ONE Stop: 09/29/17 08:59 Last Admin: 09/29/17 07:43 Dose: 100 mls/hr Levofloxacin/Dextrose (Levaquin In D5w 750 Mg/150 Ml) Confirm Administered Dose 150 mls @ as directed IV .STK-MED ONE Stop: 09/29/17 07:37 Last Admin: 09/29/17 07:43 Dose: Not Given Lactated Ringer's (Ringers, Lactated) 1,000 mls @ 125 mls/hr IV ASDIRECTED [facility] Last Admin: 09/30/17 05:41 Dose: 125 mls/hr Labetalol HCl (Normodyne) 10 mg IVPUSH ONETIME STA PRN Reason: Protocol Stop: 09/29/17 07:31 Last Admin: 09/29/17 07:44 Dose: 10 mg Mirtazapine (Remeron) 45 mg PO BEDTIME [facility] Last Admin: 09/29/17 20:23 Dose: 45 mg Ondansetron HCl (Zofran) 4 mg IV Q4H PRN PRN Reason: Nausea/Vomiting - Exam General: Alert, Cooperative, No Acute Distress. No: Oriented Lungs: Clear to Auscultation, Normal Respiratory Effort Cardiovascular: Regular Rate, Regular Rhythm, No Murmurs - Problem List & Annotations (1) Pneumonia SNOMED Code(s): 243222228 Code(s): J18.9 - PNEUMONIA, UNSPECIFIED ORGANISM Status: Acute Current Visit: Yes Qualifiers: Laterality: left Lung location: lower lobe of lung (2) UTI (urinary tract infection) SNOMED Code(s): 17347157 Code(s): N39.0 - URINARY TRACT INFECTION, SITE NOT SPECIFIED Status: Acute Current Visit: Yes (3) Rash SNOMED Code(s): 090681827 Code(s): R21 - RASH AND OTHER NONSPECIFIC SKIN ERUPTION Status: Acute Current Visit: Yes (4) Dementia SNOMED Code(s): 50080566 Code(s): F03.90 - UNSPECIFIED DEMENTIA WITHOUT BEHAVIORAL DISTURBANCE Status: Acute Current Visit: Yes (5) Palliative care status SNOMED Code(s): 347581529 Code(s): Z51.5 - ENCOUNTER FOR PALLIATIVE CARE Status: Acute Current Visit: Yes (6) Chronic renal failure, stage 4 (severe) SNOMED Code(s): 40068081 Code(s): N18.4 - CHRONIC KIDNEY DISEASE, STAGE 4 (SEVERE) Status: Acute Current Visit: Yes - Problem List Review Problem List Initiated/Reviewed/Updated: Yes - My Orders Last 24 Hours: My Active Orders 09/29/17 16:09 CULTURE SPUTUM + SMEAR [RM] Routine 09/29/17 17:45 Enoxaparin [Lovenox] 30 mg SUBCUT Q24H 09/30/17 08:31 Consult to Physical Therapy [PT Evaluation and Treatment] [CONS] Routine 09/30/17 08:33 Convert IV to Saline Lock [OM.PC] Routine 09/30/17 08:34 SIRIA Hose [Antiembolic Hose] [OM.PC] Routine 09/30/17 09:00 busPIRone [Buspar] 5 mg PO BID 09/30/17 21:00 Mirtazapine [Remeron] 45 mg PO BEDTIME - Plan Plan:: 1. Continue IV antibiotics. Patient grown a gram-negative diego in the urine and awaiting INT. 2. DC IV fluids and saline lock IV. 3. DC Muñiz catheter. 4. SIRIA hose 5. PT evaluation.
[2017-09-30] MEDS: Escitalopram 20 MG Tab PO SCH (09:31)
[2017-09-30] MEDS: Clotrimazole 1% Crm 30 GM Tube TOP SCH ×2 (09:31→20:30)
[2017-09-30] MEDS: Carboxymethylcellulose Sodium 0.5% Ophth Soln 15 ML Bottle EYEBOTH SCH ×2 (09:32→20:30)
[2017-09-30] MEDS: amLODIPine 5 MG Tab PO SCH (09:32)
[2017-09-30] MEDS: Triamcinolone Acetonide 0.1% Crm 15 GM Tube TOP SCH ×2 (09:33→20:46)
[2017-09-30] MEDS ORDERED: Acetaminophen 325 MG Tab PO SCH (12:00)
[2017-09-30] MEDS: Acetaminophen 325 MG Tab PO SCH ×2 (12:34→15:33)
[2017-09-30] MEDS: busPIRone 5 MG Tab PO SCH ×2 (13:25→20:26)
[2017-09-30] MEDS: Enoxaparin 30 MG/0.3 ML Syringe SUBCUT SCH (17:17)
[2017-09-30] MEDS: Insulin Detemir 100 Units/ML 3 ML Pen SUBCUT SCH (20:27)
[2017-09-30] MEDS: Gabapentin 300 MG Cap PO SCH (20:30)
[2017-09-30] MEDS ORDERED: Mirtazapine 15 MG Tab PO SCH (21:00)
--- NOTE | 2017-10-01 08:32 | PCM.PN ---
- General Info Date of Service: 10/01/17 Admission Dx/Problem (Free Text): Patient is demented. She is without seizures today. Nurses report that she is doing well including eating. Physical therapy is not working with her. - Patient Data Vitals - Most Recent: Last Vital Signs Temp 97.8 F 10/01/17 03:58 Pulse 90 10/01/17 03:58 Resp 22 H 10/01/17 03:58 BP 191/89 H 10/01/17 03:58 Pulse Ox 90 L 10/01/17 03:58 Weight - Most Recent: 191 lb 2 oz I&O - Last 24 Hours: Intake & Output 09/30/17 10/01/17 10/01/17 22:59 06:59 14:59 Intake Total 0 Balance 0 Lab Results Last 24 Hours: Laboratory Results - last 24 hr 09/30/17 09/30/17 Range/Units 13:33 17:19 POC Glucose 147 H 176 H (80-116) mg/dL Med Orders - Current: Current Medications Acetaminophen (Tylenol) 650 mg PO BID@1200,1600 [facility] Last Admin: 09/30/17 15:33 Dose: 650 mg Amlodipine Besylate (Norvasc) 5 mg PO DAILY [facility] Last Admin: 09/30/17 09:32 Dose: 5 mg Artificial Tears (Refresh Tears 0.5%) 0 ml EYEBOTH BID [facility] Last Admin: 09/30/17 20:30 Dose: 1 drop Bisacodyl (Dulcolax) 10 mg RECTAL DAILY PRN PRN Reason: Constipation Buspirone HCl (Buspar) 5 mg PO BID [facility] Last Admin: 09/30/17 20:26 Dose: 5 mg Clotrimazole (Lotrimin Af 1% Crm) 0 gm TOP BID [facility] Last Admin: 09/30/17 20:30 Dose: 1 applic Docusate Sodium (Colace) 100 mg PO BID PRN PRN Reason: Constipation Donepezil HCl (Aricept) 5 mg PO BEDTIME [facility] Enoxaparin Sodium (Lovenox) 30 mg SUBCUT Q24H [facility] Last Admin: 09/30/17 17:17 Dose: 30 mg Escitalopram Oxalate (Lexapro) 20 mg PO DAILY [facility] Last Admin: 09/30/17 09:31 Dose: 20 mg Gabapentin (Neurontin) 100 mg PO BID@0800,1200 [facility] Last Admin: 09/30/17 12:34 Dose: 100 mg Gabapentin (Neurontin) 300 mg PO BEDTIME [facility] Last Admin: 09/30/17 20:30 Dose: 300 mg Insulin Detemir (Levemir) 4 unit SUBCUT BEDTIME [facility] Last Admin: 09/30/17 20:27 Dose: 4 units Levofloxacin (Levaquin) 500 mg PO Q48H [facility] Lorazepam (Ativan) 0.5 mg PO TID PRN PRN Reason: Anxiety Mirtazapine (Remeron) 45 mg PO BEDTIME [facility] Last Admin: 09/30/17 20:46 Dose: 45 mg Nitroglycerin (Nitrostat) 0.4 mg SL ASDIRECTED PRN PRN Reason: Chest Pain Oxycodone HCl (Oxycodone) 5 mg PO Q4H PRN PRN Reason: Pain (moderate 4-6) Last Admin: 09/29/17 11:47 Dose: 5 mg Sodium Chloride (Saline Flush) 10 ml FLUSH ASDIRECTED PRN PRN Reason: Keep Vein Open Triamcinolone Acetonide (Triamcinolone Acetonide 0.1% Crm) 0 gm TOP BID [facility] Last Admin: 09/30/17 20:46 Dose: 1 applic Discontinued Medications Buspirone HCl (Buspar) 5 mg PO BID [facility] Last Admin: 09/29/17 20:21 Dose: 5 mg Sodium Chloride (Normal Saline) 500 mls @ 999 mls/hr IV .BOLUS ONE Stop: 09/29/17 06:42 Sodium Chloride (Normal Saline) 1,000 mls @ 500 mls/hr IV ASDIRECTED [facility] Last Admin: 09/29/17 07:15 Dose: 500 mls/hr Levofloxacin/Dextrose 750 mg/ (Premix) 150 mls @ 100 mls/hr IV ONETIME ONE Stop: 09/29/17 08:59 Last Admin: 09/29/17 07:43 Dose: 100 mls/hr Levofloxacin/Dextrose (Levaquin In D5w 750 Mg/150 Ml) Confirm Administered Dose 150 mls @ as directed IV .STK-MED ONE Stop: 09/29/17 07:37 Last Admin: 09/29/17 07:43 Dose: Not Given Lactated Ringer's (Ringers, Lactated) 1,000 mls @ 125 mls/hr IV ASDIRECTED [facility] Last Admin: 09/30/17 05:41 Dose: 125 mls/hr Levofloxacin/Dextrose 500 mg/ (Premix) 100 mls @ 100 mls/hr IV Q48H [facility] Labetalol HCl (Normodyne) 10 mg IVPUSH ONETIME STA PRN Reason: Protocol Stop: 09/29/17 07:31 Last Admin: 09/29/17 07:44 Dose: 10 mg Mirtazapine (Remeron) 45 mg PO BEDTIME [facility] Last Admin: 09/29/17 20:23 Dose: 45 mg Ondansetron HCl (Zofran) 4 mg IV Q4H PRN PRN Reason: Nausea/Vomiting - Exam General: Alert, Cooperative. No: Oriented Neck: Supple Lungs: Clear to Auscultation, Normal Respiratory Effort. No: Crackles, Rales, Rhonchi Cardiovascular: Regular Rate, Regular Rhythm, No Murmurs Extremities: No Pedal Edema - Problem List & Annotations (1) Pneumonia SNOMED Code(s): 923563195 Code(s): J18.9 - PNEUMONIA, UNSPECIFIED ORGANISM Status: Acute Current Visit: Yes Qualifiers: Laterality: left Lung location: lower lobe of lung (2) UTI (urinary tract infection) SNOMED Code(s): 64292325 Code(s): N39.0 - URINARY TRACT INFECTION, SITE NOT SPECIFIED Status: Acute Current Visit: Yes (3) Rash SNOMED Code(s): 125039445 Code(s): R21 - RASH AND OTHER NONSPECIFIC SKIN ERUPTION Status: Acute Current Visit: Yes (4) Dementia SNOMED Code(s): 32525923 Code(s): F03.90 - UNSPECIFIED DEMENTIA WITHOUT BEHAVIORAL DISTURBANCE Status: Acute Current Visit: Yes (5) Palliative care status SNOMED Code(s): 197791474 Code(s): Z51.5 - ENCOUNTER FOR PALLIATIVE CARE Status: Acute Current Visit: Yes (6) Chronic renal failure, stage 4 (severe) SNOMED Code(s): 63514602 Code(s): N18.4 - CHRONIC KIDNEY DISEASE, STAGE 4 (SEVERE) Status: Acute Current Visit: Yes - Problem List Review Problem List Initiated/Reviewed/Updated: Yes - My Orders Last 24 Hours: My Active Orders 09/30/17 08:31 Consult to Physical Therapy [PT Evaluation and Treatment] [CONS] Routine 09/30/17 08:33 Convert IV to Saline Lock [OM.PC] Routine 09/30/17 08:34 SIRIA Hose [Antiembolic Hose] [OM.PC] Routine 09/30/17 09:00 busPIRone [Buspar] 5 mg PO BID 09/30/17 21:00 Mirtazapine [Remeron] 45 mg PO BEDTIME 10/01/17 08:30 Levofloxacin [Levaquin] 500 mg PO Q48H - Plan Plan:: 1. DC IV antibiotics 2. Levaquin 500 mg every 48 hours. 3. PT is working with the patient 4. [facility] to come and evaluate how she's doing and see if she will be able to go back to that facility.
[2017-10-01] MEDS: Escitalopram 20 MG Tab PO SCH (08:44)
[2017-10-01] MEDS: Gabapentin 100 MG Cap PO SCH ×2 (08:44→12:30)
[2017-10-01] MEDS: busPIRone 5 MG Tab PO SCH (08:44)
[2017-10-01] MEDS: Clotrimazole 1% Crm 30 GM Tube TOP SCH (08:44)
[2017-10-01] MEDS: amLODIPine 5 MG Tab PO SCH (08:45)
[2017-10-01] MEDS: Carboxymethylcellulose Sodium 0.5% Ophth Soln 15 ML Bottle EYEBOTH SCH (08:45)
[2017-10-01 08:46] VITALS: BP 184/75
[2017-10-01] MEDS: Triamcinolone Acetonide 0.1% Crm 15 GM Tube TOP SCH (08:46)
[2017-10-01] MEDS ORDERED: Levofloxacin 500 MG Tab PO SCH (10:00)
[2017-10-01] MEDS ORDERED: Levofloxacin/Dextrose 5%-Water 500 MG in Premix Bag 1 BAG IV SCH (10:00)
[2017-10-01] MEDS: Acetaminophen 325 MG Tab PO SCH (12:30)
--- NOTE | 2017-10-01 12:35 | PCM.SN ---
- Free Text/Narrative Note: [facility] came to evaluate their patient. They feel she is back to her norm. Her pneumonia and UTI are improving on Levaquin. She grew Klebsiella in the urine is sensitive to Levaquin. We'll discharge her back to [facility] on Levaquin by mouth.
--- NOTE | 2017-10-01 12:41 | PCM.DCSUM1 ---
Discharge Summary - Hospital Course Free Text/Narrative:: Hospital course-patient had a CT scan of the chest that showed left lower lobe pneumonia. Should a positive UA. She was admitted and placed on Levaquin IV. She did quite well by the next day she was feeling better. She was afebrile and oxygen was above 90%. Her urine grew out Klebsiella that was sensitive to Levaquin. Patient continued to improve. We had [facility] come over to see her to make sure she was back at her baseline. She has a history of chronic renal failure and creatinine was little under 3 and that remains stable. They felt that she is back at her baseline so we'll discharge her back to [place], is on Levaquin and have her follow-up with Dr. Gutierrez in 7-10 days. Brief History: This is an 82-year-old female patient that lives at the memory care at [facility]. She was found on the floor today. Normally she walks with a walker. The staff asked her to get up she stated she hurt too much to get up. They called EMS brought her in. She had x-rays was found to have a left lower lobe pneumonia and a UTI. No hip fracture seen. Patient has no concerns. She has dementia and appears she states she now she is in the hospital but does not know the date or the day today. Her daughter states she' s been feeling okay as far she knows. Her daughters from [place]. Not able to get a good history from the patient. - Discharge Data Discharge Date: 10/01/17 Discharge Disposition: DC/Tfer to [facility] Condition: Good - Discharge Diagnosis/Problem(s) (1) Pneumonia SNOMED Code(s): 938728227 ICD Code: J18.9 - PNEUMONIA, UNSPECIFIED ORGANISM Status: Acute Current Visit: Yes Qualifiers: Laterality: left Lung location: lower lobe of lung (2) UTI (urinary tract infection) SNOMED Code(s): 40493788 ICD Code: N39.0 - URINARY TRACT INFECTION, SITE NOT SPECIFIED Status: Acute Current Visit: Yes (3) Rash SNOMED Code(s): 139746039 ICD Code: R21 - RASH AND OTHER NONSPECIFIC SKIN ERUPTION Status: Acute Current Visit: Yes (4) Dementia SNOMED Code(s): 68039780 ICD Code: F03.90 - UNSPECIFIED DEMENTIA WITHOUT BEHAVIORAL DISTURBANCE Status: Acute Current Visit: Yes (5) Palliative care status SNOMED Code(s): 154917564 ICD Code: Z51.5 - ENCOUNTER FOR PALLIATIVE CARE Status: Acute Current Visit: Yes (6) Chronic renal failure, stage 4 (severe) SNOMED Code(s): 66218346 ICD Code: N18.4 - CHRONIC KIDNEY DISEASE, STAGE 4 (SEVERE) Status: Acute Current Visit: Yes - Patient Summary/Data Consults: Consultations 09/30/17 08:31 Consult to Physical Therapy [PT Evaluation and Treatment] [CONS] Routine Please Evaluate and Treat. PT Reason for Consult: Strengthening This query below is only for informational purposes and is not editable. Admission Diagnosis/Problem: Pneumonia - Patient Instructions Diet: Regular Diet as Tolerated Activity: As Tolerated Driving: Do Not Drive Showering/Bathing: May Shower Notify Provider of: Fever, Increased Pain Other/Special Instructions: 1. Transfer back to [facility]. 2. Reche[address] with Dr. Ankit Gutierrez 7-10 days. - Discharge Plan Prescriptions/Med Rec: Levofloxacin [Levaquin] 500 mg PO Q48H #8 tablet Home Medications: Home Meds Acetaminophen [Tylenol] 650 mg PO BID@,16 09/29/17 [History] Amoxicillin 2,000 mg PO ONETIME PRN 09/29/17 [History] Bisacodyl 10 mg RECTAL DAILY PRN 09/29/17 [History] Carboxymethylcellulose Sodium [Refresh Tears 0.5%] 1 drop EYEBOTH BID 09/29/17 [ History] Donepezil HCl 5 mg PO BEDTIME 09/29/17 [History] Escitalopram Oxalate 20 mg PO DAILY 09/29/17 [History] Furosemide [Lasix] 20 mg PO SUTUTHSA 09/29/17 [History] Furosemide [Lasix] 40 mg PO MOWEFR 09/29/17 [History] Gabapentin [Neurontin] 100 mg PO BID@,12 09/29/17 [History] Gabapentin [Neurontin] 300 mg PO BEDTIME 09/29/17 [History] Insulin Detemir [Levemir] 4 unit SUBCUT BEDTIME 09/29/17 [History] LORazepam [Ativan] 0.5 mg PO TID PRN 09/29/17 [History] Mirtazapine 45 mg PO BEDTIME 09/29/17 [History] Nitroglycerin 0.4 mg SL ASDIRECTED PRN 09/29/17 [History] Triamcinolone Acetonide [Triamcinolone Acetonide 0.1% Crm] 1 applic TOP BID [History] amLODIPine [Norvasc] 5 mg PO DAILY 09/29/17 [History] busPIRone [Buspar] 5 mg PO BID 09/29/17 [History] Levofloxacin [Levaquin] 500 mg PO Q48H #8 tablet 10/01/17 [Rx] Forms: ED Department Discharge Referrals: PCP,Unknown [Ordering Only Provider] - - Discharge Summary/Plan Comment DC Time >30 min.: No - Patient Data Vitals - Most Recent: Last Vital Signs Temp 97.8 F 10/01/17 03:58 Pulse 90 10/01/17 03:58 Resp 22 H 10/01/17 03:58 BP 184/75 H 10/01/17 08:45 Pulse Ox 90 L 10/01/17 03:58 Weight - Most Recent: 191 lb 2 oz I&O - Last 24 hours: Intake & Output 09/30/17 10/01/17 10/01/17 22:59 06:59 14:59 Intake Total 0 Output Total 1 Balance 0 -1 Lab Results - Last 24 hrs: Laboratory Results - last 24 hr 09/30/17 09/30/17 10/01/17 Range/Units 13:33 17:19 06:52 POC Glucose 147 H 176 H 126 H (80-116) mg/dL 10/01/17 Range/Units 11:35 POC Glucose 114 (80-116) mg/dL Med Orders - Current: Current Medications Acetaminophen (Tylenol) 650 mg PO BID@1200,1600 [facility] Last Admin: 10/01/17 12:30 Dose: 650 mg Amlodipine Besylate (Norvasc) 5 mg PO DAILY [facility] Last Admin: 10/01/17 08:45 Dose: 5 mg Artificial Tears (Refresh Tears 0.5%) 0 ml EYEBOTH BID [facility] Last Admin: 10/01/17 08:45 Dose: 1 drop Bisacodyl (Dulcolax) 10 mg RECTAL DAILY PRN PRN Reason: Constipation Buspirone HCl (Buspar) 5 mg PO BID [facility] Last Admin: 10/01/17 08:44 Dose: 5 mg Clotrimazole (Lotrimin Af 1% Crm) 0 gm TOP BID [facility] Last Admin: 10/01/17 08:44 Dose: 1 applic Docusate Sodium (Colace) 100 mg PO BID PRN PRN Reason: Constipation Donepezil HCl (Aricept) 5 mg PO BEDTIME [facility] Enoxaparin Sodium (Lovenox) 30 mg SUBCUT Q24H [facility] Last Admin: 09/30/17 17:17 Dose: 30 mg Escitalopram Oxalate (Lexapro) 20 mg PO DAILY [facility] Last Admin: 10/01/17 08:44 Dose: 20 mg Gabapentin (Neurontin) 100 mg PO BID@0800,1200 [facility] Last Admin: 10/01/17 12:30 Dose: 100 mg Gabapentin (Neurontin) 300 mg PO BEDTIME [facility] Last Admin: 09/30/17 20:30 Dose: 300 mg Insulin Detemir (Levemir) 4 unit SUBCUT BEDTIME [facility] Last Admin: 09/30/17 20:27 Dose: 4 units Levofloxacin (Levaquin) 500 mg PO Q48H [facility] Last Admin: 10/01/17 09:17 Dose: 500 mg Lorazepam (Ativan) 0.5 mg PO TID PRN PRN Reason: Anxiety Mirtazapine (Remeron) 45 mg PO BEDTIME [facility] Last Admin: 09/30/17 20:46 Dose: 45 mg Nitroglycerin (Nitrostat) 0.4 mg SL ASDIRECTED PRN PRN Reason: Chest Pain Oxycodone HCl (Oxycodone) 5 mg PO Q4H PRN PRN Reason: Pain (moderate 4-6) Last Admin: 09/29/17 11:47 Dose: 5 mg Sodium Chloride (Saline Flush) 10 ml FLUSH ASDIRECTED PRN PRN Reason: Keep Vein Open Triamcinolone Acetonide (Triamcinolone Acetonide 0.1% Crm) 0 gm TOP BID [facility] Last Admin: 10/01/17 08:46 Dose: 1 applic Discontinued Medications Buspirone HCl (Buspar) 5 mg PO BID [facility] Last Admin: 09/29/17 20:21 Dose: 5 mg Sodium Chloride (Normal Saline) 500 mls @ 999 mls/hr IV .BOLUS ONE Stop: 09/29/17 06:42 Sodium Chloride (Normal Saline) 1,000 mls @ 500 mls/hr IV ASDIRECTED [facility] Last Admin: 09/29/17 07:15 Dose: 500 mls/hr Levofloxacin/Dextrose 750 mg/ (Premix) 150 mls @ 100 mls/hr IV ONETIME ONE Stop: 09/29/17 08:59 Last Admin: 09/29/17 07:43 Dose: 100 mls/hr Levofloxacin/Dextrose (Levaquin In D5w 750 Mg/150 Ml) Confirm Administered Dose 150 mls @ as directed IV .STK-MED ONE Stop: 09/29/17 07:37 Last Admin: 09/29/17 07:43 Dose: Not Given Lactated Ringer's (Ringers, Lactated) 1,000 mls @ 125 mls/hr IV ASDIRECTED [facility] Last Admin: 09/30/17 05:41 Dose: 125 mls/hr Levofloxacin/Dextrose 500 mg/ (Premix) 100 mls @ 100 mls/hr IV Q48H [facility] Labetalol HCl (Normodyne) 10 mg IVPUSH ONETIME STA PRN Reason: Protocol Stop: 09/29/17 07:31 Last Admin: 09/29/17 07:44 Dose: 10 mg Mirtazapine (Remeron) 45 mg PO BEDTIME [facility] Last Admin: 09/29/17 20:23 Dose: 45 mg Ondansetron HCl (Zofran) 4 mg IV Q4H PRN PRN Reason: Nausea/Vomiting *Q Meaningful Use (DIS) - VTE *Q VTE Criteria *Q: - Stroke *Q Stroke Criteria *Q: - AMI *Q AMI Criteria *Q:
== END 2017-10-01 13:40 | DRG 194 ==
LOC: FB.ED 05:38 → FB.MS 10:00 → OBSVTOIN 16:08
PROVIDERS: ADMIT Family Medicine; ATTEND Family Medicine
DX: J18.9 Pneumonia, unspecified organism (principal); N39.0 Urinary tract infection, site not specified; N18.4 Chronic kidney disease, stage 4 (severe); B96.1 Klebsiella pneumoniae [K. pneumoniae] as the cause of diseases classified elsewhere; E86.0 Dehydration; I12.9 Hypertensive chronic kidney disease with stage 1 through stage 4 chronic kidney disease, or unspecified chronic kidney disease; I25.10 Atherosclerotic heart disease of native coronary artery without angina pectoris; E11.22 Type 2 diabetes mellitus with diabetic chronic kidney disease; E11.319 Type 2 diabetes mellitus with unspecified diabetic retinopathy without macular edema; Z79.4 Long term (current) use of insulin; G30.9 Alzheimer's disease, unspecified; F02.80 Dementia in other diseases classified elsewhere, unspecified severity, without behavioral disturbance, psychotic disturbance, mood disturbance, and anxiety; M25.551 Pain in right hip; M54.2 Cervicalgia; R53.1 Weakness; W19.XXXA Unspecified fall, initial encounter; Y92.122 Bedroom in nursing home as the place of occurrence of the external cause; Z66 Do not resuscitate; Z51.5 Encounter for palliative care; M19.90 Unspecified osteoarthritis, unspecified site; F41.9 Anxiety disorder, unspecified; Z87.440 Personal history of urinary (tract) infections; H04.129 Dry eye syndrome of unspecified lacrimal gland; B35.8 Other dermatophytoses; L89.109 Pressure ulcer of unspecified part of back, unspecified stage
CPT/HCPCS: 36415; 51702; 70450; 71250; 72125; 73552; 74176; 80048; 80076; 81001; 82550; 83880; 85025; 85610; 87040 ×2; 87086; 87088; 87186; 93005; 96361; 96365; 96375; 99285; A9270 ×3; J1956; J7040; J7120; 80053; 82962; 93010; 97116-GP; 97161-GP; 97530-GP; J1650

== ENCOUNTER 2017-11-08 14:43 | Emergency (ER) | payer MEDICARE, BC ==
[2017-11-08] MEDS ORDERED: traMADol 50 MG Tab PO ONE ×2 (14:44→15:09)
[2017-11-08] MEDS ORDERED: Sulfamethoxazole/Trimethoprim 800-160 MG Tab PO ONE (15:52)
--- NOTE | 2017-11-08 16:00 | EDM.PDOC ---
ED HPI GENERAL MEDICAL PROBLEM - General Chief Complaint: Back Pain or Injury Stated Complaint: BACK PAIN Time Seen by Provider: 11/08/17 14:50 Source of Information: Reports: Patient, Family History Limitations: Reports: Altered Mental Status, Physical Impairment - History of Present Illness INITIAL COMMENTS - FREE TEXT/NARRATIVE: 82 y.o.w.f with alzheimers dementia, came to the ed with her friend due to low back pain. Pt has frequent UTIs. No trauma, No pain at this moment. Poor historian, No other acute medical issues. BP 188/84 puls 66 temp 97.5 Pulse ox 97% Onset: Today Onset Date: 11/08/17 Onset Time: 06:00 Duration: Hour(s): Location: Reports: Back, Upper Extremity, Left, Lower Extremity, Right Quality: Reports: Ache Severity: Mild Improves with: Reports: Rest Worsens with: Reports: Movement Context: Reports: Other (chronic low back pain) - Related Data Allergies Allergy/AdvReac Type Severity Reaction Status Date / Time No Known Allergies Allergy Verified 11/08/17 14:58 Home Meds: Home Meds Acetaminophen [Tylenol] 650 mg PO BID@12,16 09/29/17 [History] Amoxicillin 2,000 mg PO ONETIME PRN 09/29/17 [History] Bisacodyl 10 mg RECTAL DAILY PRN 09/29/17 [History] Carboxymethylcellulose Sodium [Refresh Tears 0.5%] 1 drop EYEBOTH BID 09/29/17 [ History] Donepezil HCl 5 mg PO BEDTIME 09/29/17 [History] Escitalopram Oxalate 20 mg PO DAILY 09/29/17 [History] Furosemide [Lasix] 20 mg PO SUTUTHSA 09/29/17 [History] Furosemide [Lasix] 40 mg PO MOWEFR 09/29/17 [History] Gabapentin [Neurontin] 100 mg PO BID@08,12 09/29/17 [History] Gabapentin [Neurontin] 300 mg PO BEDTIME 09/29/17 [History] Insulin Detemir [Levemir] 4 unit SUBCUT BEDTIME 09/29/17 [History] LORazepam [Ativan] 0.5 mg PO TID PRN 09/29/17 [History] Mirtazapine 45 mg PO BEDTIME 09/29/17 [History] Nitroglycerin 0.4 mg SL ASDIRECTED PRN 09/29/17 [History] Triamcinolone Acetonide [Triamcinolone Acetonide 0.1% Crm] 1 applic TOP BID [History] amLODIPine [Norvasc] 5 mg PO DAILY 09/29/17 [History] busPIRone [Buspar] 5 mg PO BID 09/29/17 [History] Levofloxacin [Levaquin] 500 mg PO Q48H #8 tablet 10/01/17 [Rx] Sulfamethoxazole/Trimethoprim [Bactrim Ds Tablet] 1 each PO BID #20 tablet 11/08 [Rx] traMADol HCl [Ultram] 50 mg PO Q8HR PRN #10 tablet 11/08/17 [Rx] Past Medical History - Past Health History Medical/Surgical History: Denies Medical/Surgical History HEENT History: Reports: Other (See Below) Other HEENT History: Retinopathy. Dry eye syndrome. Cardiovascular History: Reports: CAD, Hypertension Respiratory History: Reports: SOB Genitourinary History: Reports: UTI, Recurrent, Other (See Below) Other Genitourinary History: Chronic Kidney Disease, Stage 3. [employer] History: Reports: Musculoskeletal History: Reports: Arthritis, Back Pain, Chronic Neurological History: Reports: Alzheimers Disease, Other (See Below) Other Neuro History: Disorientation. Mild cognitive impairment. Psychiatric History: Reports: Anxiety Endocrine/Metabolic History: Reports: Diabetes, Type II Dermatologic History: Reports: Other (See Below) Other Dermatologic History: RASH TO BELLY FOLDS\GROINS - Infectious Disease History Infectious Disease History: Reports: Chicken Pox, Measles - Past Surgical History Respiratory Surgical History: Reports: None Dermatological Surgical History: Reports: None Social & Family History - Family History Family Medical History: Noncontributory - Tobacco Use Smoking Status *Q: Never Smoker Second Hand Smoke Exposure: No - Caffeine Use Caffeine Use: Reports: Coffee - Recreational Drug Use Recreational Drug Use: No ED ROS GENERAL - Review of Systems Review Of Systems: Unable To Obtain ED EXAM,LOWER BACK PAIN/INJURY - Physical Exam Exam: See Below Exam Limited By: Altered Mental Status (dementia) General Appearance: Alert, WD/WN, Mild Distress Eye Exam: Bilateral Eye: Normal Inspection Ears: Normal External Exam Nose: Normal Inspection Throat/Mouth: Normal Inspection Head: Atraumatic, Normocephalic Neck: Normal Inspection, Supple, Non-Tender Respiratory/Chest: No Respiratory Distress, Lungs Clear (poor insp effort) Cardiovascular: Normal Peripheral Pulses GI/Abdominal: Normal Bowel Sounds (Female) Exam: Deferred Rectal (Female) Exam: Deferred Back Exam: Normal Inspection, Full Range of Motion Extremities: Normal Inspection, Normal Range of Motion Neurological: Alert, Normal Mood/Affect, CN II-XII Intact Psychiatric: Normal Affect, Normal Mood Skin Exam: Warm, Dry, Intact Lymphatic: No Adenopathy Course - Vital Signs Text/Narrative:: 82 y.o.w.f with alzheimers dementia, came to the ed with her friend due to low back pain. Pt has frequent UTIs. No trauma, No pain at this moment. Poor historian, No other acute medical issues. BP 188/84 puls 66 temp 97.5 Pulse ox 97% PE: Dementia, low back pain, mid line Labs: UA pos for UTI, Cx is pending Imaging: L pain: NAD Impression: HTN urgency, Dementia, UTI, Low back pain Tx: Ice to lower back, Bactrim DS, Clionidins, Amlodipine. Reexam: Improved, BP on D/C 160/80 Plan: D/C with instructions Last Recorded V/S: Last Vital Signs Temp 36.4 C 11/08/17 14:50 Pulse 54 L 11/08/17 16:35 Resp 17 11/08/17 16:35 BP 160/80 H 11/08/17 17:55 Pulse Ox 96 11/08/17 16:35 - Orders/Labs/Meds Orders: Active Orders 24 hr Category Date Time Status Lumbar Spine 2 or 3V [CR] Stat Exams 11/08/17 15:08 Taken CULTURE URINE [RM] Stat Lab 11/08/17 15:30 Received Labs: Laboratory Tests 11/08/17 Range/Units 15:30 Urine Color Yellow (YELLOW) Urine Appearance Clear (CLEAR) Urine pH 6.5 (5.0-6.5) Ur Specific [place] 1.010 (1.010-1.025) Urine Protein 500 H (NEGATIVE) mg/dL Urine Glucose (UA) 250 H (NEGATIVE) mg/dL Urine Ketones Negative (NEGATIVE) mg/dL Urine Occult Blood Moderate H (NEGATIVE) Urine Nitrite Negative (NEGATIVE) Urine Bilirubin Negative (NEGATIVE) Urine Urobilinogen Normal (NEGATIVE) mg/dL Ur Leukocyte Esterase Negative (NEGATIVE) Urine RBC 0-5 (0) Urine WBC 5-10 (0) Ur Squamous Epith Cells Moderate H (NS,R,O) Urine Bacteria Few H (NS) Meds: Medications Discontinued Medications Generic Name Dose Route Start Last Admin Trade Name Freq PRN Reason Stop Dose Admin Amlodipine Besylate 5 mg 11/08/17 17:22 11/08/17 17:27 Norvasc PO 11/08/17 17:23 5 mg ONETIME ONE Administration Clonidine HCl 0.1 mg 11/08/17 16:08 11/08/17 16:13 Catapres PO 11/08/17 16:09 0.1 mg ONETIME ONE Administration Tramadol HCl 50 mg 11/08/17 15:09 11/08/17 15:57 Ultram PO 11/08/17 15:10 50 mg ONETIME ONE Administration Trimethoprim/Sulfamethoxazole 1 tab 11/08/17 15:52 11/08/17 15:57 Septra Ds PO 11/08/17 15:53 1 tab ONETIME ONE Administration Departure - Departure Time of Disposition: 15:55 Disposition: Home, Self-Care 01 Condition: Good Clinical Impression: Low back pain Qualifiers: Chronicity: chronic Back pain laterality: midline Sciatica presence: without sciatica Qualified Code(s): M54.5 - Low back pain UTI (urinary tract infection) Qualifiers: Urinary tract infection type: acute cystitis Hematuria presence: without hematuria Qualified Code(s): N30.00 - Acute cystitis without hematuria - Discharge Information Prescriptions: traMADol HCl [Ultram] 50 mg PO Q8HR PRN #10 tablet PRN Reason: sere pain Sulfamethoxazole/Trimethoprim [Bactrim Ds Tablet] 1 each PO BID #20 tablet Instructions: Chronic Back Pain, Hypertension Referrals: Ankit Gutierrez MD [Primary Care Provider] - Forms: ED Department Discharge Additional Instructions: Please increase water intake, take the meds as recommended, please f/u, come back if your symptoms get worse acutely. If the SBP in am is still above 160, please double the Amlodipine to 10 mg, daily. - My Orders Last 24 Hours: My Active Orders 11/08/17 15:08 Lumbar Spine 2 or 3V [CR] Stat 11/08/17 15:30 CULTURE URINE [RM] Stat - Assessment/Plan Last 24 Hours: My Active Orders 11/08/17 15:08 Lumbar Spine 2 or 3V [CR] Stat 11/08/17 15:30 CULTURE URINE [RM] Stat
[2017-11-08] MEDS ORDERED: cloNIDine 0.1 MG Tab PO ONE (16:08)
[2017-11-08] MEDS ORDERED: amLODIPine 5 MG Tab PO ONE (17:22)
[2017-11-08 17:58] VITALS: BP 160/80
--- NOTE | 2017-11-10 10:38 | CR ---
INDICATION: Low back pain. LUMBOSACRAL SPINE: Three views of the lumbosacral spine, 11/08/2017, were compared with investigator operator views from CT scan of the chest, abdomen, and pelvis dated 09/29/2017. There is again noted evidence of severe degenerative disk disease at L4-5 and L5 -S1, with vacuum disk phenomena at those levels and grade 2 anterolisthesis suggested at the L4-5 level additionally. Demineralization is suggested, compatible with osteoporosis. This should be correlated clinically. A mild dextroconcave scoliosis is again noted at the lower lumbar spine. The pedicles appear to be grossly intact. Sacroiliac joints appear to be grossly intact, with some mild degenerative changes at the sacroiliac joints. Extensive calcifications are noted in the splenic artery, aortoiliac artery areas. IMPRESSION: 1. Degenerative changes and disk disease L4-5, L5-S1 with no acute lumbar findings identified. 2. Superior endplate compression at T12 is unchanged from the previous study of September 2017. 3. Diminished bone density, compatible with osteoporosis. 4. Mild scoliosis. 5. ASD. MTDD
== END 2017-11-08 18:20 | disposition home or self-care (01) ==
LOC: FB.ED 14:43
DX: N30.00 Acute cystitis without hematuria (principal); I12.9 Hypertensive chronic kidney disease with stage 1 through stage 4 chronic kidney disease, or unspecified chronic kidney disease; E11.22 Type 2 diabetes mellitus with diabetic chronic kidney disease; N18.3 Chronic kidney disease, stage 3 (moderate); G30.9 Alzheimer's disease, unspecified; F02.80 Dementia in other diseases classified elsewhere, unspecified severity, without behavioral disturbance, psychotic disturbance, mood disturbance, and anxiety; Z79.899 Other long term (current) drug therapy; Z79.4 Long term (current) use of insulin
CPT/HCPCS: 72100; 81001; 87086; 99283; A9270; 99284

== ENCOUNTER 2018-02-07 04:35 | Emergency (ER) | payer MEDICARE, BC ==
[2018-02-07 05:08] VITALS: BP 203/84
[2018-02-07] MEDS ORDERED: Sodium Chloride 0.9% 10 ML Syringe FLUSH PRN (05:32)
--- NOTE | 2018-02-07 05:44 | EDM.PDOC ---
ED HPI GENERAL MEDICAL PROBLEM - General Chief Complaint: General Stated Complaint: SEIZURE Time Seen by Provider: 02/07/18 05:00 Source of Information: Reports: EMS, EMS Notes Reviewed, Assisted Records History Limitations: Reports: Altered Mental Status - History of Present Illness INITIAL COMMENTS - FREE TEXT/NARRATIVE: Jessica is an elderly resident of [facility] with a PMH of multinfarct dementia, Type II DM, CKD 3 and HBP who was up to the bathroom this 3:30 am, and when returned to bed began to have spontaneous shaking of extremities and torso that lasted for about 2 minutes. Respirations were noisy. She stopped spontaneously and has been asymptomatic since. She was transported by EMS to [facility] ED asx, with BP 203/84, RR 14, VR 70, Temp 98 deg F, GCS 12. - Related Data Allergies Allergy/AdvReac Type Severity Reaction Status Date / Time No Known Allergies Allergy Verified 11/08/17 14:58 Home Meds: Home Meds Acetaminophen [Tylenol] 650 mg PO BID@12,16 09/29/17 [History] Bisacodyl 10 mg RECTAL DAILY PRN 09/29/17 [History] Carboxymethylcellulose Sodium [Refresh Tears 0.5%] 1 drop EYEBOTH BID 09/29/17 [ History] Donepezil HCl 5 mg PO BEDTIME 09/29/17 [History] Furosemide [Lasix] 40 mg PO DAILY 09/29/17 [History] Gabapentin [Neurontin] 100 mg PO BID@08,12 09/29/17 [History] Gabapentin [Neurontin] 300 mg PO BEDTIME 09/29/17 [History] LORazepam [Ativan] 0.5 mg PO TID PRN 09/29/17 [History] Mirtazapine 45 mg PO BEDTIME 09/29/17 [History] Nitroglycerin 0.4 mg SL ASDIRECTED PRN 09/29/17 [History] Triamcinolone Acetonide [Triamcinolone Acetonide 0.1% Crm] 1 applic TOP BID [History] busPIRone [Buspar] 5 mg PO BID 09/29/17 [History] Past Medical History - Past Health History Medical/Surgical History: Denies Medical/Surgical History HEENT History: Reports: Hard of Hearing, Impaired Vision, Other (See Below) Other HEENT History: Retinopathy. Dry eye syndrome. Cardiovascular History: Reports: CAD, Hypertension Respiratory History: Reports: SOB Genitourinary History: Reports: UTI, Recurrent, Other (See Below) Other Genitourinary History: Chronic Kidney Disease, Stage 3. 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 Mild cognitive impairment. Psychiatric History: Reports: Anxiety Endocrine/Metabolic History: Reports: Diabetes, Type II Dermatologic History: Reports: Other (See Below) Other Dermatologic History: RASH TO BELLY FOLDS\GROINS - Infectious Disease History Infectious Disease History: Reports: Chicken Pox, Measles - Past Surgical History Respiratory Surgical History: Reports: None Dermatological Surgical History: Reports: None Social & Family History - Family History Family Medical History: Noncontributory - Tobacco Use Smoking Status *Q: Never Smoker Second Hand Smoke Exposure: No - Caffeine Use Caffeine Use: Reports: None - Recreational Drug Use Recreational Drug Use: No ED ROS GENERAL - Review of Systems Review Of Systems: Unable To Obtain ED EXAM, GENERAL - Physical Exam Exam: See Below Exam Limited By: Altered Mental Status General Appearance: WD/WN, No Apparent Distress Eye Exam: Bilateral Eye: EOMI, Normal Inspection, PERRL Ears: Normal External Exam Nose: Normal Inspection Throat/Mouth: Normal Inspection, Normal Lips, Normal Teeth, Normal Oropharynx, Normal Voice Head: Atraumatic, Normocephalic Neck: Normal Inspection, Supple Respiratory/Chest: Lungs Clear, Normal Breath Sounds Cardiovascular: Regular Rate, Rhythm, Other (1+ dependent edema) GI/Abdominal: Normal Bowel Sounds, Soft, No Organomegaly, No Distention, No Mass (Female) Exam: Deferred Rectal (Female) Exam: Deferred Back Exam: Normal Inspection Extremities: Normal Inspection, Normal Range of Motion, Pedal Edema Neurological: CN II-XII Intact, Inattentive, Confused, Disoriented, Slow to Respond, Memory Loss Remote Events, Memory Loss Recent Events Psychiatric: Flat Affect Skin Exam: Warm, Dry, Intact, Normal Color Lymphatic: No Adenopathy Course - Vital Signs Text/Narrative:: Following asessment at the [facility] ED, an IV was inserted into the RUE, and 1L of NS was administered over the next 2 hours. A 12 lead ekg noted NSR, troponin I < 0.017, CBC noted Hgb 12.5 gm, WBC 6,000, plts 154,000; CMP note Na 141, K 5.2, BUN 63, Cr 2.4, non FBS 240, Mg 2.7; UA noting Pro 3+, Glu 2+. Kidney disease has progressed to CKD 4. Her Lasix will be reduced to 20 mg qd, and I will add Lisinopril 5 mg qd. Last Recorded V/S: Last Vital Signs Temp 36.3 C 02/07/18 05:00 Pulse 70 02/07/18 05:00 Resp 15 02/07/18 05:00 BP 203/84 H 02/07/18 05:00 Pulse Ox 94 L 02/07/18 05:00 - Orders/Labs/Meds Orders: Active Orders 24 hr Category Date Time Status UA W/MICROSCOPIC [URIN] Stat Lab 02/07/18 06:30 Ordered Sodium Chloride 0.9% [Normal Saline] 1,000 ml Med 02/07/18 05:45 Active IV ASDIRECTED Sodium Chloride 0.9% [Saline Flush] Med 02/07/18 05:32 Active 10 ml FLUSH ASDIRECTED PRN Peripheral IV Insertion Adult [OM.PC] Routine Oth 02/07/18 05:32 Ordered EKG 12 Lead [EK] Routine Ther 02/07/18 05:31 Ordered Medication Orders Sodium Chloride (Normal Saline) 1,000 mls @ 500 mls/hr IV ASDIRECTED BEN Last Admin: 02/07/18 05:58 Dose: 500 mls/hr Sodium Chloride (Saline Flush) 10 ml FLUSH ASDIRECTED PRN PRN Reason: Keep Vein Open Last Admin: 02/07/18 05:58 Dose: 10 ml Labs: Laboratory Tests 02/07/18 02/07/18 02/07/18 Range/Units 05:45 05:45 05:45 WBC 6.0 (4.5-12.0) X10-3/uL RBC 3.99 (3.23-5.20) x10(6)uL Hgb 12.5 D (11.5-15.5) g/dL Hct 37.0 (30.0-51.3) % MCV 92.9 (80-96) fL MCH 31.4 (27.7-33.6) pg MCHC 33.8 (32.2-35.4) g/dL RDW 14.1 (11.5-15.5) % Plt Count 154 (125-369) X10(3)uL MPV 7.7 (7.4-10.4) fL Neut % (Auto) 78.1 (46-82) % Lymph % (Auto) 15.9 (13-37) % [place] % (Auto) 4.7 (4-12) % Eos % (Auto) 1 (1.0-5.0) % Baso % (Auto) 0 (0-2) % Neut # (Auto) 4.6 (1.6-8.3) # Lymph # (Auto) 1.0 (0.6-5.0) # [place] # (Auto) 0.3 (0.0-1.3) # Eos # (Auto) 0.1 (0.0-0.8) # Baso # (Auto) 0.0 (0.0-0.2) # Sodium 141 (135-145) mmol/L Potassium 5.2 (3.5-5.3) mmol/L Chloride 106 D (100-110) mmol/L Carbon Dioxide 27 (21-32) mmol/L BUN 63 H D (7-18) mg/dL Creatinine 2.4 H* (0.55-1.02) mg/dL Est Cr Clr Drug Dosing 14.43 mL/min Estimated GFR (MDRD) 19 L (>60) BUN/Creatinine Ratio 26.3 H (9-20) Glucose 240 H D (80-116) mg/dL Calcium 8.9 (8.6-10.2) mg/dL Magnesium 2.3 (1.8-2.5) mg/dL Total Bilirubin 0.3 (0.1-1.3) mg/dL AST 24 D (5-25) IU/L ALT 28 D (12-36) U/L Alkaline Phosphatase 106 (56-112) IU/L Troponin I 0.017 (<0.017-0.056) ng/mL Total Protein 6.4 (6.0-8.0) g/dL Albumin 2.7 L (3.2-4.6) g/dL Globulin 3.7 g/dL Albumin/Globulin Ratio 0.7 Urine Color (YELLOW) Urine Appearance (CLEAR) Urine pH (5.0-6.5) Ur Specific [place] (1.010-1.025) Urine Protein (NEGATIVE) mg/dL Urine Glucose (UA) (NEGATIVE) mg/dL Urine Ketones (NEGATIVE) mg/dL Urine Occult Blood (NEGATIVE) Urine Nitrite (NEGATIVE) Urine Bilirubin (NEGATIVE) Urine Urobilinogen (NEGATIVE) mg/dL Ur Leukocyte Esterase (NEGATIVE) Urine RBC (0) Urine WBC (0) Ur Squamous Epith Cells (NS,R,O) Urine Bacteria (NS) 02/07/18 Range/Units 06:30 WBC (4.5-12.0) X10-3/uL RBC (3.23-5.20) x10(6)uL Hgb (11.5-15.5) g/dL Hct (30.0-51.3) % MCV (80-96) fL MCH (27.7-33.6) pg MCHC (32.2-35.4) g/dL RDW (11.5-15.5) % Plt Count (125-369) X10(3)uL MPV (7.4-10.4) fL Neut % (Auto) (46-82) % Lymph % (Auto) (13-37) % [place] % (Auto) (4-12) % Eos % (Auto) (1.0-5.0) % Baso % (Auto) (0-2) % Neut # (Auto) (1.6-8.3) # Lymph # (Auto) (0.6-5.0) # [place] # (Auto) (0.0-1.3) # Eos # (Auto) (0.0-0.8) # Baso # (Auto) (0.0-0.2) # Sodium (135-145) mmol/L Potassium (3.5-5.3) mmol/L Chloride (100-110) mmol/L Carbon Dioxide (21-32) mmol/L BUN (7-18) mg/dL Creatinine (0.55-1.02) mg/dL Est Cr Clr Drug Dosing mL/min Estimated GFR (MDRD) (>60) BUN/Creatinine Ratio (9-20) Glucose (80-116) mg/dL Calcium (8.6-10.2) mg/dL Magnesium (1.8-2.5) mg/dL Total Bilirubin (0.1-1.3) mg/dL AST (5-25) IU/L ALT (12-36) U/L Alkaline Phosphatase (56-112) IU/L Troponin I (<0.017-0.056) ng/mL Total Protein (6.0-8.0) g/dL Albumin (3.2-4.6) g/dL Globulin g/dL Albumin/Globulin Ratio Urine Color Yellow (YELLOW) Urine Appearance Clear (CLEAR) Urine pH 6.5 (5.0-6.5) Ur Specific [place] 1.010 (1.010-1.025) Urine Protein 500 H (NEGATIVE) mg/dL Urine Glucose (UA) 250 H (NEGATIVE) mg/dL Urine Ketones Negative (NEGATIVE) mg/dL Urine Occult Blood Trace (NEGATIVE) Urine Nitrite Negative (NEGATIVE) Urine Bilirubin Negative (NEGATIVE) Urine Urobilinogen Normal (NEGATIVE) mg/dL Ur Leukocyte Esterase Negative (NEGATIVE) Urine RBC 0-5 (0) Urine WBC 0-5 (0) Ur Squamous Epith Cells Occasional (NS,R,O) Urine Bacteria Rare H (NS) Meds: Medications Generic Name Dose Route Start Last Admin Trade Name Freq PRN Reason Stop Dose Admin Sodium Chloride 1,000 mls @ 500 mls/hr 02/07/18 05:45 02/07/18 05:58 Normal Saline IV 500 mls/hr ASDIRECTED BEN Administration Sodium Chloride 10 ml 02/07/18 05:32 02/07/18 05:58 Saline Flush FLUSH 10 ml ASDIRECTED PRN Administration Keep Vein Open Departure - Departure Time of Disposition: 07:36 Disposition: DC/Tfer to [id number] Condition: Fair Clinical Impression: Seizure as late effect of cerebrovascular accident (CVA) Dementia Qualifiers: Dementia type: vascular dementia Dementia behavioral disturbance: without behavioral disturbance Qualified Code(s): F01.50 - Vascular dementia without behavioral disturbance Hypertension Qualifiers: Hypertension type: renovascular hypertension Qualified Code(s): I15.0 - Renovascular hypertension - Discharge Information Forms: ED Department Discharge - Problem List & Annotations (1) Chronic renal failure, stage 4 (severe) SNOMED Code(s): 33658203, 036603298 Code(s): N18.4 - CHRONIC KIDNEY DISEASE, STAGE 4 (SEVERE) Status: Acute Current Visit: No Annotation/Comment:: GFR 19 which has progressed. This appears to be renovascular and will add Lisinopril 5 mg qd and decrease Lasix 20 mg qd. Prognosis is poor. (2) Hypertension SNOMED Code(s): 55953010 Code(s): I10 - ESSENTIAL (PRIMARY) HYPERTENSION Status: Acute Current Visit: Yes Annotation/Comment:: Add Lisinopril 5 mg qd Qualifiers: Hypertension type: renovascular hypertension Qualified Code(s): I15.0 - Renovascular hypertension (3) Seizure as late effect of cerebrovascular accident (CVA) SNOMED Code(s): 671465901994098 Code(s): I69.398 - OTHER SEQUELAE OF CEREBRAL INFARCTION; R56.9 - UNSPECIFIED CONVULSIONS Status: Acute Current Visit: Yes Annotation/ Comment:: Past Head CT annotated multiple subcortical and lacunar infarcts. Seizure suspected to be late effect of this disorder. Monitor only at this time. - Problem List Review Problem List Initiated/Reviewed/Updated: Yes - My Orders Last 24 Hours: My Active Orders 02/07/18 05:31 EKG 12 Lead [EK] Routine 02/07/18 05:32 Sodium Chloride 0.9% [Saline Flush] 10 ml FLUSH ASDIRECTED PRN Peripheral IV Insertion Adult [OM.PC] Routine 02/07/18 05:45 Sodium Chloride 0.9% [Normal Saline] 1,000 ml IV ASDIRECTED 02/07/18 06:30 UA W/MICROSCOPIC [URIN] Stat - Assessment/Plan Last 24 Hours: My Active Orders 02/07/18 05:31 EKG 12 Lead [EK] Routine 02/07/18 05:32 Sodium Chloride 0.9% [Saline Flush] 10 ml FLUSH ASDIRECTED PRN Peripheral IV Insertion Adult [OM.PC] Routine 02/07/18 05:45 Sodium Chloride 0.9% [Normal Saline] 1,000 ml IV ASDIRECTED 02/07/18 06:30 UA W/MICROSCOPIC [URIN] Stat Plan: Follow up with PCP.
[2018-02-07] MEDS ORDERED: Sodium Chloride 0.9% 1,000 ML IV SCH (05:45)
== END 2018-02-07 07:45 ==
LOC: FB.ED 04:35
DX: R56.9 Unspecified convulsions (principal); I69.398 Other sequelae of cerebral infarction; F01.50 Vascular dementia, unspecified severity, without behavioral disturbance, psychotic disturbance, mood disturbance, and anxiety; I12.9 Hypertensive chronic kidney disease with stage 1 through stage 4 chronic kidney disease, or unspecified chronic kidney disease; E11.22 Type 2 diabetes mellitus with diabetic chronic kidney disease; N18.3 Chronic kidney disease, stage 3 (moderate); Z79.899 Other long term (current) drug therapy
CPT/HCPCS: 80053; 81001; 83735; 84484; 85025; 93005; 96360; 96361; 99285; J7040; J7050